=== PATIENT | female | born 1980 | race Caucasian/White ===

== ENCOUNTER 2017-11-16 19:39 | Emergency (ER) | payer OTHER ==
[2017-11-16 19:55] VITALS: BP 141/98
[2017-11-16] MEDS ORDERED: Ondansetron ODT TAB* 4 MG PO ONE (20:09)
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
[2017-11-16] MEDS ORDERED: Ketorolac INJ* 60 MG/2 ML VIAL IM ONE (21:07)
== END 2017-11-16 21:35 | disposition home or self-care (01) ==
LOC: UCEAST 19:39
DX: S13.4XXA Sprain of ligaments of cervical spine, initial encounter (principal); V89.2XXA Person injured in unspecified motor-vehicle accident, traffic, initial encounter; Y92.481 Parking lot as the place of occurrence of the external cause
CPT/HCPCS: 70450; 72125; 96372; 99212; A9270-GY; G0463; J1885

== ENCOUNTER 2020-08-27 09:35 | Inpatient (IN) ==
[2020-08-27] MEDS ORDERED: Buffered Lidocaine 1% SYRIN 1 ml INTRADERM ONE (10:34)
[2020-08-27] MEDS ORDERED: Lactated Ringers 1000 ml BAG 1,000 ML IV ONE (10:34)
[2020-08-27 12:00] LABS: Urine Benzodiazepine Screen None Detected (None Detect); Urine Cannabinoids Screen None Detected (None Detect); Urine Opiates Screen None Detected (None Detect)
[2020-08-27 15:53] LABS: ABS Basophils 0.1 10^3/ul (0-0.2); ABS Eosinophils 0.1 10^3/ul (0-0.6); ABS Lymphocytes 1.9 10^3/ul (1.0-4.8); ABS Monocytes 0.7 10^3/ul (0-0.8); ABS Neutrophils 6.8 10^3/ul (1.5-7.7); Eosinophil % 0.8 %; Hematocrit 33 % (35-47); Hemoglobin 10.9 g/dL (12.0-16.0); Lymphocyte % 20.1 %; Mean Corpuscular HGB Conc 34 g/dL (31-36); Mean Corpuscular Hemoglobin 29 pg (27-31); Mean Corpuscular Volume 87 fL (80-97); Mean Platelet Volume 11.8 fL (7.4-10.4); Platelet Count 116 10^3/uL (150-450); Red Blood Count 3.73 10^6 /uL (3.70-4.87); Red Cell Distribution Width 13 % (10-15); White Blood Count 9.6 10^3/uL (3.5-10.8)
[2020-08-28] MEDS: Lactated Ringers 1000 ml BAG 1,000 ML IV SCH ×2 (02:43→07:50)
[2020-08-28] MEDS ORDERED: Oxytocin in LR 20 UNITS/1,000 ML BAG IVPB SCH ×2 (03:00→10:00)
[2020-08-28] MEDS ORDERED: Bupivacaine 0.25% SDV PF 10 ML VIAL INJ ONE (06:48)
[2020-08-28] MEDS ORDERED: Lactated Ringers 1000 ml BAG 1,000 ML IV ONE (08:23)
[2020-08-28] MEDS ORDERED: Phenylephrine 40 mcg/mL 10mL (400mcg) SYRINGE IV PUSH PRN ×2 (08:23)
[2020-08-28] MEDS ORDERED: EPHEDrine (Pressors) 50 MG/ML VIAL IV PUSH PRN ×2 (08:23)
[2020-08-28] MEDS ORDERED: Lactated Ringers 1000 ml BAG 500 ML IV PRN ×2 (08:23)
[2020-08-28] MEDS ORDERED: Sodium Citrate/Citric Acid LIQ 15 ML UDC PO PRN (08:23)
[2020-08-28] MEDS ORDERED: Lactated Ringers 1000 ml BAG 1,000 ML IV SCH (09:00)
[2020-08-28] MEDS ORDERED: OBEPIDURAL 250 ML EPIDURAL SCH (09:00)
[2020-08-28] MEDS: PRENAT VITS CAL MIN IRON FOLIC PO SCH (09:00)
[2020-08-28] MEDS ORDERED: Witch Hazel PAD JAR TOPICAL PRN (09:28)
[2020-08-28] MEDS ORDERED: Glycerin ADULT 2.4 gm SUPP PR PRN (09:28)
[2020-08-28] MEDS ORDERED: Dibucaine 1% OINT 28.35 GM TUBE PR PRN (09:28)
[2020-08-29 07:16] LABS: ABS Eosinophils 0.1 10^3/ul (0-0.6); ABS Lymphocytes 2.7 10^3/ul (1.0-4.8); ABS Monocytes 0.6 10^3/ul (0-0.8); ABS Neutrophils 6.7 10^3/ul (1.5-7.7); Eosinophil % 1.4 %; Hematocrit 28 % (35-47); Hemoglobin 9.8 g/dL (12.0-16.0); Lymphocyte % 26.9 %; Mean Corpuscular HGB Conc 35 g/dL (31-36); Mean Corpuscular Hemoglobin 31 pg (27-31); Mean Corpuscular Volume 88 fL (80-97); Mean Platelet Volume 12.2 fL (7.4-10.4); Platelet Count 100 10^3/uL (150-450); Red Blood Count 3.16 10^6 /uL (3.70-4.87); Red Cell Distribution Width 14 % (10-15); White Blood Count 10.2 10^3/uL (3.5-10.8)
[2020-08-29 08:01] VITALS: BP 116/61
[2020-08-29] MEDS ORDERED: Tetan/Diph/Pertus SYR(Tdap) 0.5 ML SYR(BOOSTRIX) use SYR contains LATEX IM ONE (09:00)
[2020-08-29] MEDS: PRENAT VITS CAL MIN IRON FOLIC PO SCH (12:26)
== END 2020-08-29 16:30 | disposition home or self-care (01) | DRG 560 ==
LOC: MCHOBOUT 09:35 → MCHOB 10:24
PROVIDERS: ADMIT Obstetrics & Gynecology; ATTEND Obstetrics & Gynecology